=== PATIENT | female | born 1960 | race Caucasian/White ===

== ENCOUNTER → 2017-08-13 | Outpatient (CLI) | payer OTHER ==
[~2017-08-13] MED LIST: KEFLEX500 MG PO; NORCO 5-325 TA1 EACH PO; PREMARIN0.3 MG
== END ==
LOC: CAT 08:18
DX: J01.90 Acute sinusitis, unspecified (principal)

== ENCOUNTER 2017-11-26 05:31 | Day surgery (SDC) | payer OTHER ==
[~2017-11-26] VITALS: Ht 167.6 cm; Wt 95.3 kg
--- NOTE | ~2017-11-26 | O ---
[facility] [place] [address] OPERATIVE REPORT Name: JUWAN MORFIN Room #: DEP [facility] M.R.#: [id number] Admission: 11/26/17 Attend Phys: Micky Gaspar MD Discharge: 11/26/17 Date of : 64 Report #: [id number] THIS REPORT FOR: //name// CC: Micky George DATE OF SERVICE: 11/26/2017 PREOPERATIVE DIAGNOSIS: Sinusitis, nasal airway obstruction. POSTOPERATIVE DIAGNOSES: Sinusitis, nasal airway obstruction. PROCEDURE: Left nasal antral window, left anterior ethmoidectomy, right nasal antral window, right anterior ethmoidectomy, all done endoscopically, nasal septal reconstruction, inferior turbinate submucous resection and outfracturing. SURGEON: Micky Gaspar M.D. ANESTHESIA: General LMA. INDICATIONS: See H and P. FINDINGS: There is a high right quadrangular cartilage deviation along with a large left-sided posterior vomer spur. Inferior turbinate hypertrophy was observed. Very large prominent uncinate processes were noted bilaterally. Very thickened mucosa was encountered in the natural maxillary ostia. TECHNIQUE: After obtaining consent, she was brought to the operating suite, appropriate time out was performed. General LMA anesthesia was obtained. Bed was turned 90 degrees. Nose was prepped and draped in usual sterile fashion. The JMEA navigation system was registered and accuracy was confirmed. This was used throughout the case in both a microdebrider and suction form for accuracy and identifying important landmarks. The nose was prepped with Afrin-soaked on cottonoids, placed in each side of the nares for constriction of the inferior middle turbinates. A 6 mL of 1% Xylocaine 1:100,000 epinephrine was equally divided and injected along the root of the middle turbinate and the lateral nasal lewis along the uncinate process bilaterally. Additional 4 mL was injected into the septum and later in the case, another 2 mL was injected into the inferior turbinates, care being made not to inject intravascularly. Using a 0-degree endoscope, the left naris was intubated. The middle turbinate was medialized with a [place] elevator. The uncinate process was brought forward with a double ball. Using a side biter, I removed most of the uncinate and followed this by trimming it back with the 12-degree microdebrider blade. The [address] [address] OPERATIVE REPORT Name: JUWAN MORFIN [place] Room #: DEP [facility] Rodger.Antoni.#: [id number] Admission: 11/26/17 Attend Phys: Micky Gaspar MD Discharge: 11/26/17 Date of : 64 Report #: [id number] maxillary ostia was probed with a double ball, enlarged in an inferior and posterior with both a side biter and a 0-degree TruCut and a microdebrider blade. An anterior ethmoidectomy was then performed with combination of a microdebrider and a 0 and 45-degree TruCuts removing thickened mucosa polypoid debris and sinus contents back to the ground lamella. Devitalized bone were smoothed back with the microdebrider blade. This was taken up into, but not up to the fovea ethmoidalis. Cottonoid with Afrin was placed on this side. Attention was turned to the right side where a similar procedure was performed using a 0-degree scope, first identifying the middle turbinate, medializing it, taking down the uncinate process, identifying and opening the maxillary ostia and doing the ethmoidectomy in a similar fashion. Attention was turned to the septum where a right-sided hemitransfixion incision was made sharply. A mucoperichondrial flap was elevated off the quadrangular cartilage on the left side exposing the vomer and perpendicular plate. A large vomer spur was identified on this side. I then also harvested a large piece of quadrangular cartilage and placed this on the back table. The bony cartilaginous junction was disarticulated. Mucosal flaps elevated on the right side of the vomer and perpendicular plate fully exposing the spur, which was taken down with Katrin punches and Andi forceps. I then created a small rent in the mucosa on the left side for postoperative drainage purposes. This corrected the septum back to midline. Previously harvested cartilage was trimmed, morcellized and placed back between the septal flaps. Hemitransfixion incision was closed with simple interrupted 4-0 chromic suture. Simple splints were designed and fashioned myself placed in each side of septum and secured with a single 3-0 Prolene suture. At that time, the inferior turbinates were addressed. Each inferior turbinate was medialized with a [place]. The above local anesthetic was injected. Microdebrider was then used on the medial, medial inferior surfaces to reduce the bulk of the submucosal component of the turbinates. Each inferior turbinate was then outfractured. I reinspected the ethmoid defects with 0-degree scope. There was no evidence of CSF, rhinorrhea or active bleeding. A single piece of Xerogel was cut in half and placed in each ethmoid defect and inflated with saline. The other half was then placed between the inferior turbinate and the septum to prevent any synechia formation. The nasopharynx was suctioned free of secretions, allowed to awaken from anesthesia, went to recovery room in stable condition. ESTIMATED BLOOD LOSS: Approximately 50 mL. <ELECTRONICALLY SIGNED> By: Micky Gaspar MD 12/16/17 0726 0927 1042 Micky Gaspar MD /nt
--- NOTE | ~2017-11-26 | H ---
[facility] [place] [address] HISTORY AND PHYSICAL Name: JUWAN MROFIN Room #: 150-1 [facility] M.R.#: [id number] Admission: 11/26/17 Attend Phys: Micky Gaspar MD Discharge: Date of : 64 Report #: [id number] THIS REPORT FOR: //name// CC: Micky George DATE OF SURGERY: 11/26/2017 CHIEF COMPLAINT: Sinusitis. HISTORY OF PRESENT ILLNESS: The patient is a 57-year-old female, originally seen back in 04/2017, at which time she had had several episodes of recurrent acute sinusitis, bilateral cheeks, facial sinus pain, now referring to the right ear. Multiple allergy testings have previously been done, which had been unremarkable. She brought a previous CT scan in 11/2016, which suggested continued ethmoid and maxillary sinus disease along with the septal deviation. She continued to have worsening of her symptoms at that time. Initially, I recommended the use of saline nasal spray, nasal steroid spray and oral and topical antihistamines. I recommended a followup if she had any recurrence of her symptom complaints, for a more effective medical course of therapy. She returned in 06/2017 with typical sinusitis symptoms. She was placed on a 3-week course of maximum medical therapy. At the completion of her therapy, a CT scan of her sinuses was obtained in July. I reviewed the findings with her, which demonstrated deviated nasal septum, turbinate enlargement, mucoperiosteal thickening in the maxillary and ethmoid regions despite 3 weeks of aggressive medical therapy. I discussed the options of continued medical therapy to control her recurrent acute sinusitis, nasal symptoms along with the options of surgical intervention, which would include septoplasty, submucous resection of the turbinate, limited anterior ethmoid bullectomy and maxillary balloon dilation or opening the nasal antral windows. Risks and benefits of all this were discussed with her including the surgical and medical options. She is aware there is no cure for her condition and that surgical therapy alone will not cure or eliminate all future problems. The patient decided at that time to go ahead and pursue a surgical intervention. She presents today for such. ALLERGIES TO MEDICATION: ERYTHROMYCIN AND PENICILLIN. MEDICATIONS ON ADMISSION: Diazepam 5 mg as needed, fluticasone nasal steroid spray, Zyrtec and oxybutynin chloride 5 mg tablet. PAST MEDICAL AND PAST SURGICAL HISTORY: Notable for appendectomy and then tonsillectomy, extraction of wisdom teeth. Medical history is notable for now allergic rhinitis, headaches/migraines and the above-mentioned issues with sinusitis. FAMILY HISTORY: Notable for diabetes and heart disease. [address] [address] HISTORY AND PHYSICAL Name: JUWAN MORFIN Room #: 150-1 [facility] M.R.#: [id number] Admission: 11/26/17 Attend Phys: Micky Gaspar MD Discharge: Date of : 64 Report #: [id number] REVIEW OF SYSTEMS: Presently negative for any other GI, , cardiovascular or pulmonary issues. PHYSICAL EXAMINATION: VITAL SIGNS: Height of 5 feet 4, weight 200 pounds. Last recorded blood pressure 123/79. HEENT: ____ ears. External nasal passage unremarkable. Nasal septum has a substantial left-sided deviation, with right greater than left inferior turbinate hypertrophy. As noted above, CT scan showed mucoperiosteal thickening in the anterior ethmoid and maxillary sinuses. Oral cavity was normal with surgical absence of tonsils. NECK: Normal to palpation. CHEST: Clear. CARDIOVASCULAR: Regular rate. Regular rhythm. ASSESSMENT: History of recurrent acute sinusitis and nasal airway obstruction. PLAN: Will be for surgical intervention as mentioned above. <ELECTRONICALLY SIGNED> By: Micky Gaspar MD 11/26/17 0732 1 0831 Micky Gaspar MD /nt
[~2017-11-26 05:31] MED LIST changes: +CENTRUM SILVER1 EAC4 PO; +OXYBUTYNIN 5 MG5 M2 PO; +VENTOLIN HFA 1818 GM INH
[2017-11-26 07:00] VITALS: BP 132/72
[2017-11-26 09:48] VITALS: BP 132/72
== END 2017-11-26 11:05 | disposition home or self-care (01) ==
LOC: OR 05:31 → TBA 05:31 → OR 10:57
DX: J34.2 Deviated nasal septum (principal); J32.8 Other chronic sinusitis; J34.89 Other specified disorders of nose and nasal sinuses; J34.3 Hypertrophy of nasal turbinates; Z90.710 Acquired absence of both cervix and uterus; Z98.890 Other specified postprocedural states; Z90.49 Acquired absence of other specified parts of digestive tract; Z88.0 Allergy status to penicillin
CPT/HCPCS: 50010; 50101; 50286; 50386; 50398; 50573; 51316; 51634; 52290; 52291; 53618; 56526; 56528; 62110; 62900; 64037; 70005

== ENCOUNTER 2018-10-02 20:01 | Inpatient (IN) | payer OTHER ==
[~2018-10-02] VITALS: Ht 167.6 cm; Wt 100.0 kg
--- NOTE | ~2018-10-02 | EKG ---
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 Intern: RADHA : 1960 Requested By: Ignacia Sharma Order Number: [id number] MD: Jonah Carrington Measurements Intervals [place] Rate: 136 P: 23 UT: 138 QRS: 5 QRSD: 102 T: -2 QT: 318 QTc: 479 Interpretive Statements Sinus tachycardia RSR' in V1 or V2, right VCD No previous ECG available for comparison Electronically Signed On 10-03-2018 8:09:23 EXECUTIVE CANDIDATE DEVELOPER by Jonah Carrington [email or web address] <ELECTRONICALLY SIGNED> By: Jonah Carrington MD, [facility] 10/03/1809 10 10 Joanh Carrington MD, FACC /EPI
--- NOTE | ~2018-10-02 | HC ---
[facility] [place] [address] CONSULTATION Name: JUWAN MORFIN Room #: 210-P ADM IN M.R.#: [id number] Admission: 10/02/18 Attend Phys: Bc Zepeda MD Discharge: Date of : 64 Report #: [id number] THIS REPORT FOR: //name// CC: Bc George MD DATE OF SERVICE: 10/03/2018 Cardiology Consultation: HISTORY OF PRESENT ILLNESS: The patient is a 58-year-old single white female who came to the Emergency Room last night complaining of nausea and vomiting. The patient has a long history of supraventricular tachycardia. She apparently underwent radiofrequency ablation at [facility] more than 10 years ago. She apparently had a stress test at that time. She is not very active at this time. She actually saw my partner, Dr. Eric, in 03/2017 for followup. He recommended no test at that time. The patient states that ever since her ablation, she occasionally has episodes when her heart rate will increase and she feels some tightness in her chest. She has had no syncope. It usually resolves on its own. It is not related to activity or meals. She denies any exertional dyspnea or edema. She denied any trauma to her chest. She was doing well until two evenings ago. She and her significant other went to a concert. During the concert, she started to feel nausea. When she walked out of the concert, she vomited. She then vomited off and on through the night. Yesterday, she again felt nausea and was vomiting. She denied any blood in vomit. She has had no loose stools. She denied any abdominal pain. She finally came to the [facility] last night and was admitted. I was asked to see her for further evaluation and treatment. Today, her nausea has improved. PAST MEDICAL HISTORY: Significant for previous surgery. She has had a cholecystectomy, hysterectomy. She has had elevated cholesterol. No history of hypertension or diabetes. CURRENT MEDICATIONS: Include oxybutynin for occasional incontinence. She takes Zyrtec for seasonal allergies. ALLERGIES: SHE HAS AN ALLERGY TO ERYTHROMYCIN AND PENICILLIN. FAMILY HISTORY: Her father had coronary artery bypass surgery. SOCIAL HISTORY: She is single, lives in [place], [place]. 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 No smoking or alcohol abuse. REVIEW OF SYSTEMS: She has had no history of stroke. She has had asthma. No [facility] [address] [place] [address] CONSULTATION Name: JUWAN MORFIN Room #: 210-P [facility] IN ..#: [id number] Admission: 10/02/18 Attend Phys: Bc Zepeda MD Discharge: Date of : 64 Report #: [id number] history of liver disease, peptic ulcer disease. She has had a kidney stone. No cancer. No psychiatric illness. No chronic skin condition. PHYSICAL EXAMINATION: GENERAL: Revealed a middle-aged female lying in bed. She appeared in no acute distress. VITAL SIGNS: Showed a blood pressure 120/80, pulse is 90. She was afebrile. HEENT: She was anicteric, conjunctiva pink. Mucous membranes moist. NECK: Veins are nondistended. No carotid bruits. Neck was supple. CHEST: Clear to auscultation. CARDIOVASCULAR: Regular rate and rhythm without murmur or gallop. ABDOMEN: Soft, nontender. EXTREMITIES: Had no edema. Dorsalis pedis pulse 1+ bilaterally. SKIN: Cool and dry. NEUROLOGIC: Nonfocal. LYMPH: No adenopathy. MUSCULOSKELETAL: No joint effusion. DIAGNOSTIC DATA: ECG from last night showed a sinus tachycardia, incomplete right bundle-branch block. Today's ECG shows a sinus rhythm with no ST or T-wave change. Workup so far, she had an echocardiogram today that showed normal left ventricular function, no significant valvular abnormality. X-rays since her admission last night, she had a portable chest x-ray that showed normal heart size, clear lung mcadams. CT scan of the head was performed that showed no acute abnormality. CT scan of the chest was performed with contrast that showed no significant abnormality. Her lab work, sodium 139, potassium is 3.1, BUN was 16, creatinine 0.7, glucose 120. Lipase 68. Troponin 0.06. Cholesterol 127, triglyceride 83, HDL 34, LDL 77. BNP 57. White blood cell count 10.2, hemoglobin 14.7. TSH was 0.78. Urinalysis 1+ blood, many squamous cells, negative for leukocytes. IMPRESSION AND RECOMMENDATIONS: 1. History of supraventricular tachycardia. No clinical recurrences. The patient had a previous ablation. 2. Chest tightness. Suspect noncardiac. Recommend no further cardiac evaluation. 3. Nausea and vomiting. Suspect gastroenteritis. 4. History of seasonal allergies. 5. History of a kidney stone. <ELECTRONICALLY SIGNED> By: Severiano Ann MD, [facility] 10/04/18 0823 1627 [id number] Severiano Ann MD, FACC /nt
--- NOTE | ~2018-10-02 | EKG ---
[address] [employer] [place] [address] ELECTROCARDIOGRAM REPORT Name: JUWAN MORFIN Room #: 210-P ADM IN M.R.#: [id number] Admission: 10/02/18 Attend Phys: Bc Zepeda MD Discharge: Date of : 64 Report #: [id number] THIS REPORT FOR: //name// [facility] Test Date: 2018-10-03 Test Time: 06:45:48 Pat Name: JUWAN MORFIN Department: Room: 210 Gender: F Copy Director: MAUDE : 1960 Requested By: Rozina Gaitan Order Number: [id number] MD: Jonah Carrington Measurements Intervals [place] Rate: 108 P: 33 RI: 167 QRS: -2 QRSD: 114 T: 1 QT: 338 QTc: 453 Interpretive Statements Sinus tachycardia Incomplete right bundle branch block No previous ECG available for comparison Electronically Signed On 10-03-2018 8:33:34 AGRICULTURAL LOAN OFFICER by Jonah Carrington [email or web address] <ELECTRONICALLY SIGNED> By: Jonah Carrington MD, [facility] 10/03/18 0833 0645 0645 Jonah Carrington MD, FACC /EPI
--- NOTE | ~2018-10-02 | 2DMMODE ---
[facility] [address] [place] [address] 2 D/M-MODE ECHOCARDIOGRAM Name: JUWAN MORFIN [place]IL[place] Room #: 210-P ADM IN M.R.#: [id number] Admission: 10/02/18 Attend Phys: Bc Zepeda MD Discharge: Date of : 64 Date of Service: 10/03/18 1125 Report #: [id number] THIS REPORT FOR: //name// APPROVED REPORT Study performed: 10/03/2018 10:25:33 EXAM: Comprehensive 2D, Doppler, and color-flow Echocardiogram Patient Location: Bedside Room #: 210 Status: routine BSA: 2.11 HR: 105 bpm BP: 125/79 mmHg Rhythm: Tachycardia Other Information Study Quality: Good Indications Fatigue, nausea, rule out ACS. Hx: SVT with cardiac ablation. 2D Dimensions RVDd: 33.44 mm IVSd: 8.25 (7-11mm) LVOT Diam: 20.16 (18-24mm) LVDd: 42.70 mm PWd: 7.67 (7-11mm) Ascending Ao: 28.10 (22-36mm) LVDs: 30.27 (25-40mm) Aortic Root: 27.01 mm Volumes Left Atrial Volume (Systole) Single Plane 4CH: 30.55 mL Single Plane 2CH: 43.12 mL LA ESV Index: 19.00 mL/m2 Aortic Valve AoV Peak Leonel.: 1.28 m/s AO Peak Gr.: 6.57 mmHg LVOT Max P.19 mmHg LVOT Max V: 1.02 m/s YESICA Vmax: 2.55 cm2 Mitral Valve MV Decel. Time: 85.63 ms MV E Max Leonel.: 0.99 m/s IVRT: 87.66 ms [facility] [address] [place] [address] 2 D/M-MODE ECHOCARDIOGRAM Name: STEFFIADRIELELIJAHI [facility] Room #: 210-[facility] IN M.R.#: [id number] Admission: 10/02/18 Attend Phys: Bc Zepeda MD Discharge: Date of : 64 Date of Service: 10/03/18 1125 Report #: [id number] Pulmonary Valve PV Peak Leonel.: 0.67 m/s PV Peak Gr.: 1.81 mmHg Pulmonary Vein P Vein S: 0.52 m/s P Vein A: 0.46 m/s P Vein D: 0.36 m/s P Vein A Dur.: 101.5 msec P Vein S/D Ratio: 1.44 Tricuspid Valve TR Peak Leonel.: 2.49 m/s RAP Estimate: 5.00 mmHg TR Peak Gr.: 24.77 mmHg PA Pressure: 30.00 mmHg Left Ventricle The left ventricle is normal size. There is normal LV segmental wall motion. There is normal left ventricular wall thickness. Left ventricular systolic function is normal. LVEF is 55-60%. This study is not technically sufficient to allow evaluation of the LV diastolic function. Right Ventricle The right ventricle is normal size. The right ventricular systolic function is normal. Atria The left atrium size is normal. The right atrium size is normal. Aortic Valve The aortic valve is normal in structure. No aortic regurgitation is present. There is no aortic valvular stenosis. Mitral Valve The mitral valve is normal in structure. Trace mitral regurgitation. Tricuspid Valve The tricuspid valve is normal in structure. Mild tricuspid regurgitation. Estimated PAP is 30mmHg. Pulmonic Valve The pulmonary valve is normal in structure. Trace pulmonic regurgitation. Great Vessels [facility] [address] [place] [address] 2 D/M-MODE ECHOCARDIOGRAM Name: JUWAN MORFIN [facility] Room #: [address] [place] [address] IN ..#: [id number] Admission: 10/02/18 Attend Phys: Bc Zepeda MD Discharge: Date of : 64 Date of Service: 10/03/18 1125 Report #: [id number] The aortic root is normal in size. The ascending aorta is normal in size. IVC is normal in size and collapses >50% with inspiration. Pericardium There is no pericardial effusion. <Conclusion> The left ventricle is normal size. LVEF is 55-60%. The aortic valve is normal in structure. The mitral valve is normal in structure. Trace mitral regurgitation. The tricuspid valve is normal in structure. Mild tricuspid regurgitation. Estimated PAP is 30mmHg. The pulmonary valve is normal in structure. Trace pulmonic regurgitation. There is no pericardial effusion. <ELECTRONICALLY SIGNED> By: Tommy Winston MD 10/03/18 1125 1125 1125 Tommy Winston MD /INF
[2018-10-02 20:02] VITALS: BP 114/74
[2018-10-02 20:27] LABS: HEMATOCRIT 44.2 % (37.0-47.0); HEMOGLOBIN 14.7 gm/dL (12.0-15.0); MCH 28.5 pg (26.0-34.0); MCHC 33.4 g/dL (28.0-37.0); MCV 85.3 fL (80.0-100.0); RBC 5.18 mil/uL (4.20-5.00); WBC 10.2 thou/uL (4.0-11.0)
[2018-10-02 20:39] LABS: ANION GAP 10 mmol/L (7-16); BUN 22 mg/dL (7-18); CALCIUM 8.4 mg/dL (8.5-10.1); CHLORIDE 100 mmol/L (98-107); CO2 28 mmol/L (21-32); CREATININE 0.8 mg/dL (0.6-1.0); GLUCOSE 148 mg/dL (74-106); POTASSIUM 3.5 mmol/L (3.5-5.1); SODIUM 138 mmol/L (136-145)
[2018-10-02 20:44] LABS: BE(vivo) 1.6 mmol/L (-2 to +3); HCO3 25.6 mmol/L (22.0-26.0); PCO2 VENOUS 38.3 mmHg (41.0-51.0); PO2 VENOUS 71.4 mmHg (35.0-45.0)
[2018-10-02 20:48] LABS: ALBUMIN 3.2 g/dL (3.4-5.0); LIPASE 68 U/L (73-393); SGOT 16 U/L (15-37); SGPT 25 U/L (30-65); TOTAL BILIRUBIN 0.4 mg/dL (<0.1-1.0); TOTAL PROTEIN 7.3 g/dL (6.4-8.2); TROPONIN-I <0.06 ng/mL (<0.06)
[2018-10-02] MEDS ORDERED: ALLEGRA ALLERGY60 MG PO (21:03)
[2018-10-02] MEDS ORDERED: CETIRIZINE HCL5 MG PO (21:04)
[2018-10-02] MEDS ORDERED: MEDROLDOSEPACK PO (21:04)
[2018-10-02 21:05] LABS: URINE BILIRUBIN NEGATIVE (Negative); URINE BLOOD 1+ (Negative); URINE CLARITY CLEAR; URINE COLOR YELLOW; URINE GLUCOSE-RANDOM* NEGATIVE (Negative); URINE KETONES NEGATIVE (Negative); URINE LEUKOCYTES-REFLEX NEGATIVE (Negative); URINE NITRITE-REFLEX NEGATIVE (Negative); URINE PROTEIN (DIPSTICK) NEGATIVE (Negative); URINE SPECIFIC GRAVITY >= 1.030 (1.005-1.035); URINE UROBILINOGEN 0.2 E.U./dl (0.2-1.0)
[2018-10-02] MEDS ORDERED: DOXYCYCLINE 10100 MG PO (21:05)
[2018-10-02 21:15] LABS: MUCUS >6 Heavy strn/LPF (None Seen); SQUAMOUS >10 Many /LPF (0-3)
[2018-10-02 21:16] LABS: BACTERIA-REFLEX None Seen /HPF (None Seen); CASTS None Seen /LPF (None Seen); CRYSTALS None Seen /LPF (None Seen); URINE RBC 3-10 Few /HPF (0-2); URINE WBC-REFLEX 0-5 Rare /HPF (0-5)
[2018-10-02 23:07] VITALS: BP 110/67
[2018-10-02 23:19] VITALS: BP 110/67
[2018-10-03] VITALS (9 sets, daily range): BP systolic 110–140; BP diastolic 32–90
[2018-10-03 02:37] LABS: ANION GAP 9 mmol/L (7-16); BUN 16 mg/dL (7-18); CALCIUM 7.7 mg/dL (8.5-10.1); CHLORIDE 103 mmol/L (98-107); CHOLESTEROL 127 mg/dL (<200); CO2 27 mmol/L (21-32); CREATININE 0.7 mg/dL (0.6-1.0); GLUCOSE 120 mg/dL (74-106); HDL CHOLESTEROL 34 mg/dL (>40); LDL CHOLESTEROL 77 mg/dL (<100); POTASSIUM 3.1 mmol/L (3.5-5.1); SODIUM 139 mmol/L (136-145); TC:HDL 3.7 Ratio (Not establshd); TRIGLYCERIDE 83 mg/dL (<150); TROPONIN-I <0.06 ng/mL (<0.06); VLDL 17 mg/dL (<40)
[2018-10-03 02:50] LABS: SERUM ASSESSMENT Clear
[2018-10-03 23:10] LABS: GLYCOHEMOGLOBIN (HGB A1C) 5.8 % (4.8-5.6)
[2018-10-04 04:41] VITALS: BP 120/72
[2018-10-04 07:53] VITALS: BP 116/64
[2018-10-04 10:17] LABS: HEMATOCRIT 37.3 % (37.0-47.0); MCH 29.1 pg (26.0-34.0); MCHC 32.9 g/dL (28.0-37.0); MCV 88.4 fL (80.0-100.0); PLATELET COUNT 187 thou/uL (150-400); RBC 4.22 mil/uL (4.20-5.00); RDW 14.6 % (10.5-14.5); WBC 4.7 thou/uL (4.0-11.0)
[2018-10-04 10:27] LABS: HEMOGLOBIN 12.3 gm/dL (12.0-15.0)
[2018-10-04 10:36] LABS: ALBUMIN 2.7 g/dL (3.4-5.0); CALCIUM 8.8 mg/dL (8.5-10.1); CREATININE 0.7 mg/dL (0.6-1.0); POTASSIUM 4.3 mmol/L (3.5-5.1); TOTAL BILIRUBIN 0.2 mg/dL (<0.1-1.0); TOTAL PROTEIN 5.6 g/dL (6.4-8.2)
[2018-10-04 11:00] VITALS: BP 107/69
[2018-10-04 11:05] VITALS: BP 137/79
[2018-10-04 11:07] LABS: ABSOLUTE NEUTROPHILS 2.2 thou/uL (1.4-8.2); PLATELET ESTIMATE NORMAL
[2018-10-04 11:08] VITALS: BP 134/75
[2018-10-04 19:06] VITALS: BP 116/76
[2018-10-05 03:27] LABS: HEMATOCRIT 37.5 % (37.0-47.0); HEMOGLOBIN 12.6 gm/dL (12.0-15.0); MCH 29.3 pg (26.0-34.0); MCHC 33.7 g/dL (28.0-37.0); MCV 86.9 fL (80.0-100.0); PLATELET COUNT 189 thou/uL (150-400); RBC 4.32 mil/uL (4.20-5.00); RDW 14.2 % (10.5-14.5); WBC 5.9 thou/uL (4.0-11.0)
[2018-10-05 03:34] LABS: CALCIUM 8.7 mg/dL (8.5-10.1); CREATININE 0.7 mg/dL (0.6-1.0); POTASSIUM 4.1 mmol/L (3.5-5.1)
[2018-10-05 05:04] LABS: ABSOLUTE NEUTROPHILS 3.4 thou/uL (1.4-8.2)
[2018-10-05 05:27] VITALS: BP 104/63
[2018-10-05 09:38] VITALS: BP 118/73
[2018-10-05 09:39] VITALS: BP 119/73
[2018-10-05 09:40] VITALS: BP 106/67
[2018-10-05 12:02] VITALS: BP 124/73
[2018-10-05 13:50] VITALS: BP 124/73
== END 2018-10-05 14:20 | disposition home or self-care (01) | DRG 392 ==
LOC: ER 20:01 → 2N 22:47 → EROBS 22:47 → 2N 10-03 00:24 → ENTRNSPT 10-05 13:56 → EDTRNSPTSTS 10-05 13:59 → 2N 10-05 14:20
PROVIDERS: Hospitalist; Nurse Practitioner Family; Student in an Organized Health Care Education/Training Program
DX: A08.4 Viral intestinal infection, unspecified (principal); N32.81 Overactive bladder; R07.89 Other chest pain; R00.0 Tachycardia, unspecified; J45.909 Unspecified asthma, uncomplicated; E86.0 Dehydration; Z90.49 Acquired absence of other specified parts of digestive tract; Z90.710 Acquired absence of both cervix and uterus; Z86.14 Personal history of Methicillin resistant Staphylococcus aureus infection; Z79.899 Other long term (current) drug therapy; Z88.0 Allergy status to penicillin; Z88.1 Allergy status to other antibiotic agents; Z82.49 Family history of ischemic heart disease and other diseases of the circulatory system; Z82.3 Family history of stroke
CPT/HCPCS: 10081

== ENCOUNTER → 2019-08-30 | Outpatient (CLI) | payer OTHER ==
[~2019-08-30] VITALS: Ht 167.6 cm; Wt 94.2 kg
[~2019-08-30] MED LIST changes: +ALLEGRA ALLERGY60 MG PO; +CETIRIZINE HCL5 MG PO; +DOXYCYCLINE 10100 MG PO; +MEDROLDOSEPACK PO; +METAXALL800 MG PO; +MYRBETRIQ50 MG PO; +NEURONTIN 300300 M1 PO; +NORCO 5-325 TA1 EAC1 PO
[2019-08-30 08:51] VITALS: BP 135/95
--- NOTE | 2019-08-30 09:20 | NUR ---
Pain Clinic Assessment: 1. History of Osteoarthritis: Not Applicable History of Rheumatoid Arthritis: Not Applicable 2. Height: 5 ft. 6 in. 167.6 cm. Weight: 207.6 lb. oz. 94.167 kg. Patient's BMI: 33.5 3. Vital Signs: BP: 135/95 Pulse: 95 Resp: 20 Temp: 02 Sat: 97 ECG Mon: 4. Pain Intensity: 6 5. Fall Risk: Dizziness: Y Needs help standing or walking: N Fallen in the last 3 months: N Fall risk comments: 6. Patient on Blood Thinner: None 7. History of Hypertension: N 8. Opioid Therapy greater than 6 weeks: N Opiate Contract Signed: 9. Risk Assessment Tool Provided: 10. Functional Assessment Tool: 11. Recreational Drug Use: Never Drug Type: Tobacco Use: Never Smoker Tobacco Type: Amount or Packs/day: How Many Years: Alcohol Use: Yes Frequency: Weekly Quant: 1
--- NOTE | 2019-09-29 08:25 | HPC ---
[facility] [address] [address] PAIN MANAGEMENT CONSULTATION Name: JUWAN MORFIN Room #: REG ANANDA Ange#: [id number] Admission: 08/30/19 Attend Phys: Daja Flor MD Discharge: Date of : 64 Report #: [id number] THIS REPORT FOR: //name// CC: Daja George DATE OF SERVICE: 08/30/2019 CHIEF COMPLAINT: Pain in the back and down into both legs. HISTORY OF PRESENT ILLNESS: The patient is a 59-year-old female who has been referred to the pain clinic for evaluation of back and leg pain. She has had pain in the back in the past. This was back in 2016. She underwent an epidural steroid injection and noted some benefit from that. She is now experiencing pain in the left side with pain that radiates down into her leg. Also, has had some components of pain and discomfort and aching involving the right side lower hips and lower back area. Notes that her pain is exacerbated by sitting, driving, walking, standing and sometimes improves when she lies down. She has changed her mattress with little improvement in her pain and discomfort. She is awakened at night because of the pain and discomfort. She has tried hydrocodone to help decrease the discomfort. Use of a Medrol Dosepak did not provide significant improvement. She has not had surgery. Did try chiropractic treatment about 3 years ago. ALLERGIES: ERYTHROMYCIN causes nausea and vomiting. PENICILLIN, anaphylactic reaction. CURRENT MEDICATIONS: EpiPen, Lidoderm topical patches, Medrol Dosepak, Nasonex 50 mcg nasal spray, Patanol 0.1% ophthalmic solution both eyes, Xopenex inhaler, hydrocodone 5/325 p.o. t.i.d. and p.r.n. azelastine 137 mcg nasal spray, Myrbetriq 50 mg, Sudafed 12:00 hours. PAST MEDICAL HISTORY: 1. Tendinitis, right wrist. 2. Renal calculi 2011. PAST SURGICAL HISTORY: Hysterectomy, septum frontal sinus 2017, cholecystectomy in 2009, radiofrequency ablation of lesion of the heart 2009, total abdominal hysterectomy in 2007, tonsillectomy and adenoids 1966, ingrown toenails 2016. SOCIAL HISTORY: Works in [employer]. She is working at this juncture. REVIEW OF SYSTEMS: Generally good health, wears glasses, chronic sinus problems, nosebleeds, change in bowel movements, and constipation. LABORATORY DATA: MRI of the lumbar spine dated 08/18/2019: [place] [address] PAIN MANAGEMENT CONSULTATION Name: JUWAN MORFIN Room #: REG [facility]#: [id number] Admission: 08/30/19 Attend Phys: Daja Flor MD Discharge: Date of : 64 Report #: [id number] 1. L2-L3, disk space narrowing present. There is a 2 mm retrolisthesis of L2. Facet and ligamentous hypertrophy is seen. There is minimal diffuse bulging annulus. The thecal sac measures 12 mm AP. 2. L3-L4 diffuse bulging annulus is present. There is prominence in the extraforaminal location. There is facet and ligamentous hypertrophy. Thecal sac measures 12 mm AP. No significant foraminal stenosis. 3. L4-L5 facet and ligamentum flavum hypertrophy is seen. There is diffuse bulging annulus. The thecal sac measures 8-9 mm in AP diameter. No significant foraminal stenosis is seen. 4. L5-S1 focal T2 hyperintensity noted in the posterior aspects of the disk. This represents an annular tear. There is a minimal diffuse bulging annulus. No evidence for central canal or foraminal stenosis. PAIN CLINIC ASSESSMENT AND PQRS: 1. History of osteoarthritis. The patient is not being treated for osteoarthritis. 2. History of rheumatoid arthritis. The patient is not being treated for rheumatoid arthritis. 3. Height 5 feet 6 inches, weight 207 pounds, BMI is 33.5. 4. Vital signs: Blood pressure 135/95, pulse 95, respiratory rate 20, room air saturation is 97%. 5. Pain intensity 6/10. 6. Fall history: The patient has not fallen in the last 3 months. 7. Blood thinner. The patient is not on a blood thinning medication. 8. Hypertension. The patient is not being treated for hypertension. 9. Opioids greater than 6 weeks. The patient is using hydrocodone on occasion. 10. Risk assessment tool, low for opioid use. 11. Functional assessment tool. 12. Recreational drug use: The patient denies. Functional assessment tool ____70. 13. Tobacco: The patient has never smoked. 14. Alcohol: The patient drinks 1 alcoholic beverage weekly. PHYSICAL EXAMINATION: GENERAL: The patient is a well-developed white female, appears her stated age. She is somewhat obese. She is alert and oriented x 3. Her affect is appropriate. Speech is fluent. HEENT: Normocephalic, atraumatic. Extraocular eye muscles intact. Sclerae nonicteric. Mucous membranes are moist. NECK: Without adenopathy or JVD. HEART: Regular rate. LUNGS: Generally clear to auscultation. EXTREMITIES: Upper extremity muscle strength judged to be 5/5 for the major muscle groups in the upper extremity. The patient has pain and discomfort in the lower portion of her back with pain that is radiating down into the left and right buttocks in the L3-L4 dermatomal distribution. The patient stands slowly. [facility] [address] [place] [address] PAIN MANAGEMENT CONSULTATION Name: JUWAN MORFIN Room #: REG ANANDA Menezes.#: [id number] Admission: 08/30/19 Attend Phys: Daja Flor MD Discharge: Date of : 64 Report #: [id number] She is able to roll back on her heels as well as rise on her toes. Notes some pain and discomfort with flexion and extension. Deep tendon reflexes are trace. Straight leg raises are positive with increased pain down in the L3-L4 dermatomal distribution. IMPRESSION: 1. Lumbar radiculopathy in the L3-L4 dermatomal distribution. 2. Tendinitis, right wrist. 3. Renal calculi 2012. RECOMMENDATIONS: We discussed treatment options with the patient. A model was used to indicate the area of probable pathology. The patient's MRI was reviewed with her. Risks and benefits of an epidural steroid injection, which could include but are not limited to infection, worsening of pain, no improvement in pain, bleeding, spinal headache were discussed. Questions were sought and answered. The patient agreed to proceed with an epidural steroid injection. She was taken to the procedure area. She was then assisted in getting on examination table. Her back was sterilely prepped with a Betadine solution. A 0.25% bupivacaine was infiltrated at the L2-L3 interspace. A 17-gauge Tuohy with loss of resistance technique was used to gain access to the epidural space. There was no CSF, heme or paresthesia. A total of 80 mg Depo-Medrol, 40 mg triamcinolone and 2 mL of 0.25% bupivacaine was injected. The patient tolerated the procedure well. There were no complications. The patient's pain level was 6 at the time of discharge. A total of 19 seconds fluoroscopy time was used. She will call us if she has any concerns. We would like to thank you for letting us participate in her care. We hope she continues to improve. <ELECTRONICALLY SIGNED> By: Daja Flor MD 09/29/19 0825 0010 0204 Daja Flor MD /nt
== END | disposition home or self-care (01) ==
LOC: PAIN 06:57
DX: M54.16 Radiculopathy, lumbar region (principal); G89.29 Other chronic pain; Z90.710 Acquired absence of both cervix and uterus; Z90.49 Acquired absence of other specified parts of digestive tract; Z98.890 Other specified postprocedural states; Z79.899 Other long term (current) drug therapy; Z88.0 Allergy status to penicillin; Z88.8 Allergy status to other drugs, medicaments and biological substances

== ENCOUNTER → 2020-05-29 | Outpatient (CLI) | payer OTHER ==
[~2020-05-29] VITALS: Ht 167.6 cm; Wt 100.2 kg
[~2020-05-29] MED LIST changes: +ALEVE220 M1 PO; +LEXAPRO 10 MG T10 M2 PO
[2020-05-29 08:07] VITALS: BP 157/80
--- NOTE | 2020-05-29 08:23 | NUR ---
Pain Clinic Assessment: 1. History of Osteoarthritis: BACK History of Rheumatoid Arthritis: Not Applicable 2. Height: 5 ft. 6 in. 167.6 cm. Weight: 221.0 lb. oz. 100.245 kg. Patient's BMI: 35.7 3. Vital Signs: BP: 157/80 Pulse: 102 Resp: 18 Temp: 02 Sat: 98 ECG Mon: 4. Pain Intensity: 5 5. Fall Risk: Dizziness: N Needs help standing or walking: N Fallen in the last 3 months: N Fall risk comments: 6. Patient on Blood Thinner: None 7. History of Hypertension: N 8. Opioid Therapy greater than 6 weeks: N Opiate Contract Signed: 9. Risk Assessment Tool Provided: MODERATE RISK 02/26 10. Functional Assessment Tool: 11. Recreational Drug Use: Never Drug Type: Tobacco Use: Never Smoker Tobacco Type: Amount or Packs/day: How Many Years: Alcohol Use: Yes Frequency: Monthly Quant: 1-2
--- NOTE | 2020-06-14 08:56 | HPC ---
[facility] [place] [place] [address] [place] [address] PAIN MANAGEMENT CONSULTATION Name: JUWAN MORFIN Room #: REG ANANDA MenezesMaria D#: [id number] Admission: 05/29/20 Attend Phys: Daja Flor MD Discharge: Date of : 64 Report #: [id number] THIS REPORT FOR: cc: Simon George MD,Daja Jennings MD, MD ~ CC: Daja George DATE OF SERVICE: 05/29/2020 CHIEF COMPLAINT: Low back pain down into the legs. HISTORY: The patient is a 59-year-old female who has been seen in the pain clinic in the past because of low back pain with pain, which has radiated down into her legs. She has had a recurrence of her pain. She notes that the pain radiates down into both buttocks and down into both legs to the level of her ankles. She has had problems with her back since 2016. She rates it today as a 5/10. Sitting, lying down, standing and walking can all exacerbate her discomfort. She finds that use of medications, heat and cold to be beneficial. She would like to proceed with another epidural steroid injection. She has tried chiropractic treatment about 3 years ago. ALLERGIES: ERYTHROMYCIN CAUSES NAUSEA AND VOMITING, PENICILLIN -- ANAPHYLACTIC REACTION. CURRENT MEDICATIONS: Naprosyn 220 mg t.i.d., Lexapro 10 mg, gabapentin 300 mg, Myrbetriq 50 mg. PAIN CLINIC ASSESSMENT AND PQRS: 1. History of osteoarthritis of the back. She is not being treated for rheumatoid arthritis. 2. Height 5 feet 6 inches, weight 222 pounds, BMI is 35.7. 3. Vital signs: Blood pressure 157/80, pulse 102, respiratory rate 18, room air saturation is 98%. 4. Pain intensity, 5/10. 5. Fall history. The patient has not fallen in the last 3 months. 6. Blood thinner. The patient is not on a blood thinning medication. 7. Hypertension. The patient is not being treated for hypertension. 8. Opioids greater than 6 weeks. The patient is not on an opioid or has used opioids from her primary. 9. Risk assessment tool, moderate risk for opioid use. 10. Functional assessment tool, /70. 11. Recreational drug use. The patient denies. 12. Tobacco. The patient never smoked. 13. Alcohol. The patient drinks 1-2 alcoholic beverages monthly. [address] [address] PAIN MANAGEMENT CONSULTATION Name: JUWAN MORFIN Room #: REG [facility] Riri#: [id number] Admission: 05/29/20 Attend Phys: Daja Flor MD Discharge: Date of : 64 Report #: [id number] PHYSICAL EXAMINATION: GENERAL: The patient is a well-developed, well-nourished, white female. Appears her stated age. She is alert and oriented x 3. She is somewhat obese. Her affect is appropriate. Speech is fluent. The patient is wearing a mask. HEENT: Extraocular eye muscles intact. Sclerae nonicteric. Mucous membranes are moist. NECK: Without adenopathy or JVD. HEART: Regular rate. LUNGS: Generally clear. ABDOMEN: Nontender. EXTREMITIES: Upper extremity muscle strength judged to be 5-/5 for the major muscle groups in the upper extremity. The patient has some discomfort in the lower portion of her back with pain that is radiating down into the left and right buttocks area in the L3-L4 dermatomal distribution. The patient stands and rises slowly using her hands. Straight leg raises are positive with increased pain in the L3-L4 dermatomal distribution. IMPRESSION: 1. Lumbar radiculopathy in the L3-L4 dermatomal distribution. 2. Tendinitis history in the right wrist. 3. Renal calculi, 2012. RECOMMENDATIONS: We discussed treatment options with the patient. Risks and benefits of an epidural steroid injection were discussed. Possible complications were reviewed. They include but are not limited to infection, worsening of pain, no improvement in pain, nerve damage, bleeding, and the patient elects to proceed. PROCEDURE NOTE: The patient was taken to the procedure area. She was then assisted in getting on the examination table. Her back was sterilely prepped with a Betadine solution at the L3-L4 interspace. A 17-gauge Tuohy with loss of resistance technique was used to gain access to the epidural space. This area had been sterilely prepped with Betadine. It was infiltrated with 0.25% bupivacaine using a 25-gauge needle. After appropriate localization using fluoroscopy, a total of 80 mg Depo-Medrol, 40 mg triamcinolone and 2 mL of 0.25% bupivacaine was injected. The patient tolerated the procedure well. She remained in the pain clinic for an appropriate amount of time. She will follow up in the future as needed. A total of 18 seconds fluoroscopy time was used. We would like to thank you for letting us participate in her care. We hope she continues to improve. <ELECTRONICALLY SIGNED> By: Daja Flor MD 06/14/20 0856 0043 0358 Daja Flor MD /PMT
== END ==
LOC: PAIN 05-20 08:38
PROVIDERS: ATTEND Anesthesiology Pain Medicine
DX: M54.16 Radiculopathy, lumbar region (principal); Z79.899 Other long term (current) drug therapy; Z88.8 Allergy status to other drugs, medicaments and biological substances; Z98.890 Other specified postprocedural states

== ENCOUNTER 2021-06-02 07:34 | Emergency (ER) | payer OTHER ==
[~2021-06-02] VITALS: Ht 167.6 cm; Wt 86.2 kg
[2021-06-02 07:38] VITALS: BP 147/75
== END 2021-06-02 08:27 | disposition home or self-care (01) ==
LOC: ER 07:34
DX: R04.0 Epistaxis (principal); Z90.710 Acquired absence of both cervix and uterus; Z88.0 Allergy status to penicillin; Z88.1 Allergy status to other antibiotic agents

== ENCOUNTER 2021-06-27 06:32 | Day surgery (SDC) | payer OTHER ==
[~2021-06-27] VITALS: Ht 167.6 cm; Wt 86.2 kg
--- NOTE | ~2021-06-27 | O ---
[facility] [address] [place] [address] OPERATIVE REPORT Name: JUWAN MORFIN Room #: 150-2 [facility] M.R.#: [id number] Admission: 06/27/21 Attend Phys: Micky Gaspar MD Discharge: Date of : 64 Report #: [id number] THIS REPORT FOR: cc: Simon George MD, William M. MD [place],Micky Mcneal MD ~ DATE OF SERVICE: 06/27/2021 PREOPERATIVE DIAGNOSIS: Left nasal mass with epistaxis. POSTOPERATIVE DIAGNOSIS: Left nasal mass with epistaxis. PROCEDURE: Endoscopic control of epistaxis, left side. SURGEON: Micky Gaspar MD ANESTHESIA: General LMA. INDICATIONS: The patient has had recurrent bleeding from left side of the nose, not responding to conventional treatment. It was noted she had a small granuloma on the superior surface of the inferior turbinate. She presents today for removal of this lesion. TECHNIQUE: After obtaining consent, she was brought to the operating suite, appropriate time out was performed. General LMA anesthesia was obtained. The bed was turned 90 degrees. The nose was prepped and draped in the usual sterile fashion. Afrin-soaked cottonoids were placed in the left naris for vasoconstriction of the inferior turbinate. Upon removal of these, brisk bleeding was noted from the small 2-mm nasal lesion on the superior portion of the inferior turbinate. A 2 mL of 1% Xylocaine and 1:100,000 epinephrine was injected submucosally underneath the mass. Care was made not to inject intravascularly. Using the Neuro Bayonet Bipolar Forceps on a setting of 20 coagulation, the mass was grasped and the mass was vaporized effectively with three or four applications. Dissection was then used to try to roughen the area, but no further bleeding was elicited. A small piece of HemoPore was lubricated with antibiotic ointment and placed between the septum and the nasal mass. She was then turned back over to anesthesia, where she was lightened, extubated and taken to recovery room in stable condition. ESTIMATED BLOOD LOSS: 5 mL. By: 0851 1120 Micky Gaspar MD /nt
[~2021-06-27 06:32] MED LIST changes: +CARDIZEM CD 18180 M3 PO; +PROZAC20 M1 PO; +VENTOLIN HFA INH8 GM INH; +VITAMIN D350 MC3 PO
--- NOTE | 2021-06-27 07:23 | H ---
[facility] [place] [address] [place] [address] HISTORY AND PHYSICAL Name: UJWAN MORFIN Room #: 150-2 [facility] M.R.#: [id number] Admission: 06/27/21 Attend Phys: Micky Gaspar MD Discharge: Date of : 64 Report #: [id number] THIS REPORT FOR: cc: Simon George MD, William M. MD [place],Micky Mcneal MD ~ DATE OF SERVICE: 06/27/2021 CHIEF COMPLAINT: Left nasal lesion. HISTORY OF PRESENT ILLNESS: The patient is a 60-year-old female who has had intermittent episodes of epistaxis from her left anterior nares. Back in 2018, I visualized a lesion located on the superior mid portion of the left inferior turbinate. Initially, this was treated with conservative therapy, but not responsive. Recommended removal under anesthesia. Due to COVID, she did not return until this year and was seen in May, at which time the lesion was visualized as a 1 cm exophytic reddish lesion on the superior surface of the left inferior turbinate. I recommended removal under general anesthesia with the use of cautery and postoperative nasal packing. Risks were discussed with her and she agrees to proceed forward. ALLERGIES TO MEDICATIONS: ERYTHROMYCIN AND PENICILLIN. MEDICATIONS: On admission, epinephrine auto injector as needed, citalopram 10 mg once a day, gabapentin 300 mg daily, albuterol inhaler on a p.r.n. basis, Lomaira 8 mg tablet before meals, phentermine 37.5 mg daily, Pulmicort inhaler as needed basis. PAST MEDICAL AND SURGICAL HISTORY: Notable for an appendectomy, extraction of wisdom teeth, previous septoplasty and turbinate reduction surgery, adenotonsillectomy. MEDICAL HISTORY: Notable for asthma, seasonal allergies, migraines, sleep disordered breathing. REVIEW OF SYSTEMS: Negative otherwise for any other GI, , cardiovascular, pulmonary, or hematopoietic issues. PHYSICAL EXAMINATION: GENERAL: Female, appears stated age. Height of 5 feet 4 inches, weighs 200 pounds. VITAL SIGNS: Last recorded blood pressure 123/79. HEENT: As described above for the left naris. Oral cavity and pharynx are otherwise unremarkable aside from surgically absent tonsils. CHEST: Clear. CARDIOVASCULAR: Regular rhythm. [facility] [address] [place] [address] HISTORY AND PHYSICAL Name: JUWAN MORFIN CAMILLE Room #: [facility] M.R.#: [id number] Admission: 06/27/21 Attend Phys: Micky Gaspar MD Discharge: Date of : 64 Report #: [id number] ASSESSMENT: Left nasal mass. PLAN: Will be for endoscopic control of nasal hemorrhage and removal of the nasal mass under endoscopic guidance. <ELECTRONICALLY SIGNED> By: Micky Gaspar MD 06/27/21 0723 1535 1616 Micky Gaspar MD /nt
[2021-06-27 09:07] VITALS: BP 130/79
[2021-06-27 10:26] VITALS: BP 130/79
== END 2021-06-27 11:05 | disposition home or self-care (01) ==
LOC: OR 06:32 → TBA 06:32 → OR 11:05
PROVIDERS: ATTEND Otolaryngology
DX: R04.0 Epistaxis (principal); L92.8 Other granulomatous disorders of the skin and subcutaneous tissue; J45.909 Unspecified asthma, uncomplicated; G43.909 Migraine, unspecified, not intractable, without status migrainosus; Z98.890 Other specified postprocedural states; Z79.899 Other long term (current) drug therapy; Z90.49 Acquired absence of other specified parts of digestive tract; Z88.8 Allergy status to other drugs, medicaments and biological substances; Z88.0 Allergy status to penicillin
CPT/HCPCS: 50010; 50101; 50286; 50386; 50398; 57006; 62110; 62900; 70005